=== PATIENT | female | born 1970 | race Caucasian/White ===

== ENCOUNTER 2017-11-02 13:34 | Emergency (ER) | payer SELFPAY ==
[2017-11-02] MEDS ORDERED: Aspirin 81 MG Tab.Chew PO ONE (13:58)
[2017-11-02] MEDS ORDERED: Sodium Chloride 0.9% 10 ML Syringe FLUSH PRN (13:59)
[2017-11-02] MEDS ORDERED: Sodium Chloride 0.9% 2.5 ML Syringe FLUSH PRN (13:59)
--- NOTE | 2017-11-02 14:06 | EDM.PDOC ---
ED HPI GENERAL MEDICAL PROBLEM - General Chief Complaint: Chest Pain Stated Complaint: CHEST PAIN Time Seen by Provider: 11/02/17 13:49 - History of Present Illness INITIAL COMMENTS - FREE TEXT/NARRATIVE: HISTORY AND PHYSICAL: History of present illness: The patient is a 47-year-old female with no stated cardiac or pulmonary history who presents with sudden onset of bilateral anterior chest wall pressure discomfort that radiated to her mid back and started to cause tingling in her left upper extremity. This started about 12:30, 2-1/2 hours ago while she was watching television and she has never had this before. She had a normal morning preceding that without any chest pain cough upper respiratory symptoms fever chills abdominal pain vomiting or diarrhea. The patient said that associate with the discomfort she had some nausea but no diaphoresis and no dizziness or loss of consciousness. She is not short of breath but felt she could not take a deep breath. The pain was an 8/10 at its onset and currently is a 5/10 and she did not take anything at home medication desai for it. The patient has never had chest pain with activity before and has not done any strenuous activity or new activity that she is aware of. The patient denies any social history and is not on control and has a father who had cardiac disease in his 60s and a mother with some other heart problem which she describes as a thickening of the heart. The patient was seen here in emergency department on October 05 for a possible miscarriage and had a serum quantitative hCG of 4600 and negative ultrasound and was scheduled to follow up with [facility]'s health 3 days subsequently. She said she did not follow-up with them because of the financial cost and says that she had a spontaneous at home passing tissue and has not had any vaginal bleeding since that time. She has not followed up to have repeat serum quantitative hCG. The patient denies any lower back pain or flank pain and says that she does have some discomfort between her shoulder blades associated with the chest discomfort and pressure. She has been taking Motrin [id number] for some shoulder discomfort that is not new or different. Review of systems: As per history of present illness and below otherwise all systems reviewed and negative. Past medical history: As per history of present illness and as reviewed below otherwise noncontributory. Surgical history: As per history of present illness and as reviewed below otherwise noncontributory. Social history: No reported history of drug or alcohol abuse. Family history: As per history of present illness and as reviewed below otherwise noncontributory. Physical exam: Dermal: Well-developed well-nourished female who is nontoxic and vital signs are reviewed by me. HEENT: Atraumatic, normocephalic, negative for conjunctival pallor or scleral icterus, mucous membranes moist, throat clear, neck supple, nontender, trachea midline. Lungs: Clear to auscultation, breath sounds equal bilaterally, chest nontender. I cannot elicit any discomfort with palpation of the chest wall Heart: S1S2, regular in rhythm no overt murmurs Abdomen: Soft, nondistended, nontender. NABS Negative for costovertebral tenderness. Pelvis: Deferred Genitourinary: Deferred. Rectal: Deferred. Extremities: Atraumatic, negative for cords or calf pain. Neurovascular unremarkable. No pedal edema or leg asymmetry Neuro: Awake, alert, oriented. Cranial nerves II through XII unremarkable. Cerebellum unremarkable. Motor and sensory unremarkable throughout. Exam nonfocal. Diagnostics: EKG CBC CMP d-dimer serum quantitative hCG INR troponin lipase chest x-ray; because the d-dimer is positive We will proceed to do CTA of the chest Therapeutics: IV O2 monitor aspirin sublingual nitroglycerin Nitropaste Patient's chest pain was a 3/10 when the nurse went in with the nitroglycerin and is currently just a "sensation" or 0/10. We will place Nitropaste Patient has been chest pain-free from her original chest pain and she has still had this weird sensation but she has not concerned about it. She and at bedside are aware of all testing results and I have advised for observation admission for serial EKGs and cardiac enzymes. After much discussion and consideration the patient would like to defer admission and pursue outpatient follow-up of these symptoms. She is aware that I cannot assure her that this is not a cardiac event and she is awake alert and oriented and has at bedside in except these risks. She will follow up and I will give her clinic referral information for that. Impression: Chest pain rule out ACS declining admission Definitive disposition and diagnosis as appropriate pending reevaluation and review of above. chest pain Pain Score (Numeric/FACES): 6 - Related Data Allergies Allergy/AdvReac Type Severity Reaction Status Date / Time Latex, Natural Rubber Allergy Rash Verified 11/02/17 13:46 Penicillins Allergy Anaphylactic Verified 11/02/17 13:44 Shock Home Meds: Home Meds . [No Known Home Meds] 10/05/17 [History] Past Medical History HEENT History: Reports: None Cardiovascular History: Reports: None Respiratory History: Reports: None Gastrointestinal History: Reports: None Genitourinary History: Reports: None INS[employer]OR QUAL[employer]URANCE History: Reports: , Other (See Below) Other INS[employer]OR QUAL[employer]URANCE History: hx of [facility] Musculoskeletal History: Reports: None Neurological History: Reports: None Psychiatric History: Reports: None Endocrine/Metabolic History: Reports: None Hematologic History: Reports: None Immunologic History: Reports: None Oncologic (Cancer) History: Reports: None Dermatologic History: Reports: None - Infectious Disease History Infectious Disease History: Reports: Chicken Pox - Past Surgical History Head Surgeries/Procedures: Reports: None HEENT Surgical History: Reports: Tonsillectomy Cardiovascular Surgical History: Reports: None Respiratory Surgical History: Reports: None GI Surgical History: Reports: None Female Surgical History: Reports: None Endocrine Surgical History: Reports: None Neurological Surgical History: Reports: None Musculoskeletal Surgical History: Reports: None Dermatological Surgical History: Reports: None Social & Family History - Family History Family Medical History: Noncontributory - Tobacco Use Smoking Status *Q: Never Smoker Second Hand Smoke Exposure: No - Caffeine Use Caffeine Use: Reports: Coffee - Recreational Drug Use Recreational Drug Use: No ED ROS GENERAL - Review of Systems Review Of Systems: ROS reveals no pertinent complaints other than HPI. ED EXAM, GENERAL - Physical Exam Exam: See Below (See dictation) Course - Vital Signs Last Recorded V/S: Last Vital Signs Temp 37.1 C 11/02/17 13:46 Pulse 86 11/02/17 17:08 Resp 16 11/02/17 17:08 BP 114/70 11/02/17 17:08 Pulse Ox 98 11/02/17 17:08 - Orders/Labs/Meds Orders: Active Orders 24 hr Category Date Time Status Cardiac Monitoring [RC] . DIRECTED Care 11/02/17 13:58 Active EKG 12 Lead [EKG Documentation Completion] [RC] STAT Care 11/02/17 13:57 Active Oxygen Therapy, ED [RC] ASDIRECTED Care 11/02/17 13:58 Active Pulse Oximetry [RC] ASDIRECTED Care 11/02/17 13:58 Active Ang Chest [CT] Stat Exams 11/02/17 15:03 Taken Chest 1V Frontal [CR] Stat Exams 11/02/17 13:58 Taken Sodium Chloride 0.9% [Saline Flush] Med 11/02/17 13:59 Active 10 ml FLUSH ASDIRECTED PRN Sodium Chloride 0.9% [Saline Flush] Med 11/02/17 13:59 Active 2.5 ml FLUSH ASDIRECTED PRN Saline Lock Insert [OM.PC] Stat Oth 11/02/17 13:58 Ordered Medication Orders Sodium Chloride (Saline Flush) 10 ml FLUSH ASDIRECTED PRN PRN Reason: Keep Vein Open Last Admin: 11/02/17 14:09 Dose: 10 ml Sodium Chloride (Saline Flush) 2.5 ml FLUSH ASDIRECTED PRN PRN Reason: Keep Vein Open Last Admin: 11/02/17 14:09 Dose: 2.5 ml Labs: Laboratory Tests 11/02/17 11/02/17 11/02/17 Range/Units 14:10 14:10 14:10 WBC 7.39 (4.0-11.0) K/uL RBC 4.29 L (4.30-5.90) M/uL Hgb 13.6 (12.0-16.0) g/dL Hct 39.1 (36.0-46.0) % MCV 91.1 (80.0-98.0) fL MCH 31.7 (27.0-32.0) pg MCHC 34.8 (31.0-37.0) g/dL RDW Std Deviation 46.0 (28.0-62.0) fl RDW Coeff of Chelsie 14 (11.0-15.0) % Plt Count 229 (150-400) K/uL MPV 10.10 (7.40-12.00) fL Neut % (Auto) 60.0 (48.0-80.0) % Lymph % (Auto) 28.4 (16.0-40.0) % Meade % (Auto) 7.0 (0.0-15.0) % Eos % (Auto) 4.1 (0.0-7.0) % Baso % (Auto) 0.5 (0.0-1.5) % Neut # (Auto) 4.4 (1.4-5.7) K/uL Lymph # (Auto) 2.1 (0.6-2.4) K/uL Meade # (Auto) 0.5 (0.0-0.8) K/uL Eos # (Auto) 0.3 (0.0-0.7) K/uL Baso # (Auto) 0.0 (0.0-0.1) K/uL Nucleated RBC % 0.0 /100WBC Nucleated RBCs # 0 K/uL INR 0.98 D-Dimer, Quantitative 0.86 H (0.0-0.52) mg/LFEU Sodium 138 (136-145) mmol/L Potassium 4.7 (3.5-5.1) mmol/L Chloride 106 (98-107) mmol/L Carbon Dioxide 22.8 (21.0-32.0) mmol/L BUN 10 (7.0-18.0) mg/dL Creatinine 0.7 (0.6-1.0) mg/dL Est Cr Clr Drug Dosing 102.38 mL/min Estimated GFR (MDRD) > 60.0 ml/min Glucose 87 (74-106) mg/dL Calcium 9.0 (8.5-10.1) mg/dL Total Bilirubin 1.5 H (0.2-1.0) mg/dL AST 29 (15-37) IU/L ALT 21 (14-63) IU/L Alkaline Phosphatase 68 (46-116) U/L Troponin I < 0.050 (0.000-0.056) ng/mL Total Protein 6.7 (6.4-8.2) g/dL Albumin 3.6 (3.4-5.0) g/dL Globulin 3.1 (2.0-3.5) g/dL Albumin/Globulin Ratio 1.2 L (1.3-2.8) Lipase 186 (73-393) U/L HCG, Quant 4.0 mIU/mL Meds: Medications Generic Name Dose Route Start Last Admin Trade Name Freq PRN Reason Stop Dose Admin Sodium Chloride 10 ml 11/02/17 13:59 11/02/17 14:09 Saline Flush FLUSH 10 ml ASDIRECTED PRN Administration Keep Vein Open Sodium Chloride 2.5 ml 11/02/17 13:59 11/02/17 14:09 Saline Flush FLUSH 2.5 ml ASDIRECTED PRN Administration Keep Vein Open Discontinued Medications Generic Name Dose Route Start Last Admin Trade Name Tiago PRN Reason Stop Dose Admin Aspirin 324 mg 11/02/17 13:58 11/02/17 14:07 Aspirin PO 11/02/17 13:59 324 mg ONETIME ONE Administration Sodium Chloride 1,000 mls @ 999 mls/hr 11/02/17 14:24 11/02/17 14:24 Normal Saline IV 11/02/17 15:24 999 mls/hr .Bolus ONE Administration Nitroglycerin 0.4 mg 11/02/17 13:58 11/02/17 14:23 Nitrostat SL 0.4 mg Q5M PRN Administration Chest Pain Nitroglycerin 0.5 gm 11/02/17 15:04 11/02/17 15:39 Nitro-Bid 2% TOP 11/02/17 15:05 0.5 gm ONETIME ONE Administration Departure - Departure Time of Disposition: 17:39 Disposition: Home, Self-Care 01 Condition: Good Clinical Impression: Chest pain Qualifiers: Chest pain type: unspecified Qualified Code(s): R07.9 - Chest pain, unspecified - Discharge Information Forms: ED Department Discharge Additional Instructions: The following information is given to patients seen in the emergency department who are being discharged to home. This information is to outline your options for follow-up care. We provide all patients seen in our emergency department with a follow-up referral. The need for follow-up, as well as the timing and circumstances, are variable depending upon the specifics of your emergency department visit. If you don't have a primary care physician on staff, we will provide you with a referral. We always advise you to contact your personal physician following an emergency department visit to inform them of the circumstance of the visit and for follow-up with them and/or the need for any referrals to a consulting specialist. The emergency department will also refer you to a specialist when appropriate. This referral assures that you have the opportunity for followup care with a specialist. All of these measure are taken in an effort to provide you with optimal care, which includes your followup. Under all circumstances we always encourage you to contact your private physician who remains a resource for coordinating your care. When calling for followup care, please make the office aware that this follow-up is from your recent emergency room visit. If for any reason you are refused follow-up, please contact the [facility] emergency department at and ask to speak to the emergency department charge nurse. [facility] Primary care- Internal Medicine and Family [address] [id number] Please rest and push hydration and call and schedule a follow-up appointment as we discussed in the clinic for further care and evaluation. Return to ER as needed and as discussed. Please take 325 milligram aspirin every day until you' re followed up in the clinic. - My Orders Last 24 Hours: My Active Orders 11/02/17 13:57 EKG 12 Lead [EKG Documentation Completion] [RC] STAT 11/02/17 13:58 Cardiac Monitoring [RC] . DIRECTED Oxygen Therapy, ED [RC] ASDIRECTED Pulse Oximetry [RC] ASDIRECTED Chest 1V Frontal [CR] Stat Saline Lock Insert [OM.PC] Stat 11/02/17 13:59 Sodium Chloride 0.9% [Saline Flush] 10 ml FLUSH ASDIRECTED PRN Sodium Chloride 0.9% [Saline Flush] 2.5 ml FLUSH ASDIRECTED PRN 11/02/17 15:03 Ang Chest [CT] Stat - Assessment/Plan Last 24 Hours: My Active Orders 11/02/17 13:57 EKG 12 Lead [EKG Documentation Completion] [RC] STAT 11/02/17 13:58 Cardiac Monitoring [RC] . DIRECTED Oxygen Therapy, ED [RC] ASDIRECTED Pulse Oximetry [RC] ASDIRECTED Chest 1V Frontal [CR] Stat Saline Lock Insert [OM.PC] Stat 11/02/17 13:59 Sodium Chloride 0.9% [Saline Flush] 10 ml FLUSH ASDIRECTED PRN Sodium Chloride 0.9% [Saline Flush] 2.5 ml FLUSH ASDIRECTED PRN 11/02/17 15:03 Ang Chest [CT] Stat
[2017-11-02] MEDS: Nitroglycerin 0.4 MG Tab.SL SL PRN ×3 (14:08→14:23)
[2017-11-02] MEDS ORDERED: Sodium Chloride 0.9% 1,000 ML IV ONE (14:24)
[2017-11-02 15:01] LABS: CHLORIDE,CL 106 mmol/L (98-107); SODIUM,NA 138 mmol/L (136-145)
[2017-11-02] MEDS ORDERED: Nitroglycerin 2% Oint 1 GM UD Packet TOP ONE (15:04)
--- NOTE | 2017-11-03 19:42 | CR ---
EXAM DATE: 11/02/17 PATIENT'S AGE: 47 Patient: ANNAMARIA YOUNG Facility: [place], [place] Site . Site : 1970 Study: XRay Chest [id number]/[id number] 3:19:29 PM Ordering Physician: Derrell Arnett Final Report: INDICATION: Chest Pain, short of breath TECHNIQUE: Chest radiograph 1 view COMPARISON: 11/02/2017 FINDINGS: Mediastinum: The mediastinum is normal in appearance. The heart silhouette is normal in size and morphology. Lung: Both lungs are unremarkable in appearance. No sign of pleural effusion seen. No pneumothorax is identified. Musculoskeletal: Unremarkable for age. IMPRESSION: 1. No acute cardiopulmonary disease is seen. Dictated by: Reji uGo MD @ 11/02/2017 15:20:10 (Electronic Signature) Report Signed by Proxy. [facility]
--- NOTE | 2017-11-03 20:13 | CT ---
EXAM DATE: 11/02/17 PATIENT'S AGE: 47 Patient: ANNAMARIA YOUNG Facility: [place], [place] Site . Site : 1970 Study: CT Chest Angio 50mL Isovue 370 [id number]/23/2018 4:05:17 PM Ordering Physician: Derrell Arnett Final Report: INDICATION: D-dimer,shortness of breath TECHNIQUE : CT scan of the chest. CTA PE protocol. IV contrast. Please note that all CT scans at this facility use dose modulation, iterative reconstruction and/or weight-based dosing when appropriate to reduce radiation dose to as low as reasonably achievable(ALARA). FINDINGS: No pulmonary artery filling defects. There are no enlarged axillary, hilar, or mediastinal lymph nodes. The heart great vessels are unremarkable. The lungs are free of infiltrate. There are no pleural or pericardial effusions. Visualized upper abdomen is unremarkable. IMPRESSION: No signs for acute pulmonary embolus. Results were discussed with Dr. Dove, by telephone, at the conclusion of the study. Please note that all CT scans at this facility use dose modulation, iterative reconstruction, and/or weight-based dosing when appropriate to reduce radiation dose to as low as reasonably achievable. Dictated by Ladonna Spears MD @ Nov 02 2017 5:14PM (Electronic Signature) Report Signed by Proxy. [facility]TDD
== END 2017-11-02 17:42 | disposition home or self-care (01) ==
LOC: MW.ED 13:34
DX: R07.9 Chest pain, unspecified (principal); Z91.040 Latex allergy status; Z88.0 Allergy status to penicillin
CPT/HCPCS: 36415; 71045; 71275; 80053; 83690; 84484; 84702; 85025; 85379; 85610; 93005; 96360; 99285; A9270; J7040; 99284